=== PATIENT | male | born 1955 | race Caucasian/White ===

== ENCOUNTER 2016-10-19 11:25 | Outpatient (CLI) ==
[2015-09-18 17:56] VITALS: BMI 25.0
--- NOTE | 2016-10-19 12:02 | DI ---
EXAM: PA and lateral views of the chest HISTORY: Cough and fatigue COMPARISON: None FINDINGS: The cardiomediastinal silhouette is normal. There is no pneumothorax or pleural effusion . There is no consolidation, nodule or mass. Calcified granuloma of the right lung is present. Th e osseous structures are unremarkable. IMPRESSION: No acute cardiopulmonary process
[2016-10-19 13:11] LABS: BASOPHILS % (AUTO) 0.3 % (0.0-3.0); EOSINOPHILS # (AUTO) 0.1 K/ul (0.0-0.7); EOSINOPHILS % (AUTO) 0.8 % (0.0-7.0); HEMATOCRIT 41.6 % (42.0-52.0); HEMOGLOBIN 14.1 g/dl (14.0-18.0); IMMATURE GRANULOCYTE % (AUTO) 0.1 % (0.0-5.0); LYMPHOCYTES # (AUTO) 2.1 K/uL (0.60-3.4); LYMPHOCYTES % (AUTO) 28.4 (10.0-50.0); MEAN CORPUSCULAR HEMOGLOBIN 29.4 pg (27.0-31.0); MEAN CORPUSCULAR HGB CONC 33.9 (31.8-35.4); MEAN CORPUSCULAR VOLUME 86.8 fl (80.0-94.0); MONOCYTES # (AUTO) 0.5 K/uL (0.4-2.0); MONOCYTES % (AUTO) 6.9 (0-10); NEUTROPHILS # (AUTO) 4.6 K/ul (2.0-6.9); NEUTROPHILS % (AUTO) 63.5; PLATELET COUNT 329 10^3/uL (140-440); RED BLOOD COUNT 4.79 10^6/ul (4.70-6.10); WHITE BLOOD COUNT 7.29 K/ul (4.2-10.2)
[2016-10-19 13:15] LABS: ADD URINE MICROSCOPIC NO; BILIRUBIN,URINE Negative (NEGATIVE); KETONES,URINE Negative (NEGATIVE); LEUKOCYTE ESTERASE ,URINE Negative (NEGATIVE); NITRITE,URINE Negative (NEGATIVE); PH,URINE 5.5 (5-9); PROTEIN,URINE Negative (NEGATIVE); URINE, BLOOD Negative (NEGATIVE)
[2016-10-19 13:26] LABS: FLU INTERNAL QC INTERNAL QC VALID; RAPID FLU A NEGATIVE (NEGATIVE); RAPID FLU B NEGATIVE (NEGATIVE)
[2016-10-19 13:58] LABS: ALBUMIN 3.5 g/dL (3.4-5.0); ALBUMIN/GLOBULIN RATIO 0.88; ANION GAP 14.3; BILIRUBIN,TOTAL 0.44 mg/dL (0.00-1.20); BUN/CREATININE RATIO 19.31; CALCIUM 9.3 mg/dL (8.2-10.2); CHOL/HDL RATIO 3.6 (4.5-6.4); CREATININE 0.88 mg/dL (0.60-1.10); POTASSIUM 4.3 mmol/L (3.5-5.1); TOTAL PROTEIN 7.5 g/dL (5.8-8.1)
== END 2016-10-19 11:26 | disposition home or self-care (01) ==
LOC: LAB 11:25
PROVIDERS: ATTEND Nurse Practitioner Family
DX: R05 Cough (principal); R53.83 Other fatigue; R50.9 Fever, unspecified; R52 Pain, unspecified; E78.5 Hyperlipidemia, unspecified; N48.9 Disorder of penis, unspecified; Z12.5 Encounter for screening for malignant neoplasm of prostate; W57.XXXA Bitten or stung by nonvenomous insect and other nonvenomous arthropods, initial encounter; Z11.3 Encounter for screening for infections with a predominantly sexual mode of transmission
CPT/HCPCS: 36415; 80053; 80061; 80074; 81001; 84443; 85025; 86592; 86617; 86695; 86696; 86701; 86757; 87651; 87798; 87800; 87804; 87880

== ENCOUNTER 2017-11-03 12:02 | Outpatient (CLI) ==
[2015-09-18 17:56] VITALS: BMI 25.0
== END 2017-11-03 12:03 | disposition home or self-care (01) ==
LOC: RHC-LAB 12:02
PROVIDERS: ATTEND Emergency Medicine
DX: E78.5 Hyperlipidemia, unspecified (principal); I10 Essential (primary) hypertension; Z12.5 Encounter for screening for malignant neoplasm of prostate
CPT/HCPCS: 36415; 80053; 80061; 84443; 85025

== ENCOUNTER 2018-02-15 08:57 | Outpatient (CLI) ==
[2015-09-18 17:56] VITALS: BMI 25.0
== END 2018-02-15 08:58 | disposition home or self-care (01) ==
LOC: RHC-LAB 08:57
PROVIDERS: ATTEND Nurse Practitioner Family
DX: E78.5 Hyperlipidemia, unspecified (principal)
CPT/HCPCS: 36415; 80053; 80061

== ENCOUNTER 2018-09-06 09:52 | Outpatient (CLI) ==
[2015-09-18 17:56] VITALS: BMI 25.0
--- NOTE | 2018-09-06 10:52 | CT ---
EXAM: CT of the abdomen pelvis without contrast History: Abdominal pain and distension. Comparison: CT abdomen pelvis 09/25/2015 Technique: Multiplanar CT images through the abdomen pelvis were obtained without the administration of IV contrast Findings: Lung bases are clear. No acute osseous abnormalities. Severe degenerative disc disease w ithin the lower lumbar spine. Right hip arthroplasty. Atherosclerotic vascular calcifications. No gallstones identified by CT. No focal liver or splenic lesions. No mario peripancreatic inflammation. Adrenal glands are unremarkable. No change in the 7 mm rim calcified right renal artery aneurysm. No renal stones and no hydronephrosis. The appendix is normal. No free air and no ascites. Evaluation of the pelvis is limited due to streak artifact f rom the hip arthroplasty hardware. Moderate colonic stool. No abdominal aortic aneurysm. Fat-conta ining left inguinal hernia. Impression: 1. No acute intra-abdominal or pelvic process. 2. Fat-containing left inguinal hernia. 3. 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
== END 2018-09-06 09:53 | disposition home or self-care (01) ==
LOC: RAD 09:52
PROVIDERS: ATTEND Nurse Practitioner Family
DX: R14.0 Abdominal distension (gaseous) (principal); Q89.9 Congenital malformation, unspecified; Z98.890 Other specified postprocedural states